=== PATIENT | female | born 1995 | race Hispanic/Latino ===

== ENCOUNTER 2017-03-18 17:33 | Outpatient (CLI) | payer MEDICAID ==
[2017-03-18 18:41] VITALS: BP 127/77
== END 2017-03-18 18:59 | disposition home or self-care (01) ==
LOC: TRG 17:33 → LD 17:34 → TRG 18:59
PROVIDERS: ATTEND Obstetrics & Gynecology
DX: Z34.93 Encounter for supervision of normal pregnancy, unspecified, third trimester (principal); Z3A.36 36 weeks gestation of pregnancy

== ENCOUNTER 2019-12-03 00:01 | Emergency (ER) | payer SELFPAY ==
[2019-12-03 00:12] VITALS: BP 140/100
== END 2019-12-03 01:00 | disposition left against medical advice (07) ==
LOC: ED 00:01
DX: M54.2 Cervicalgia (principal); M25.511 Pain in right shoulder; R68.84 Jaw pain; Z53.21 Procedure and treatment not carried out due to patient leaving prior to being seen by health care provider; V49.49XA Driver injured in collision with other motor vehicles in traffic accident, initial encounter; Y93.89 Activity, other specified; Y92.410 Unspecified street and highway as the place of occurrence of the external cause; Y99.8 Other external cause status